=== PATIENT | female | born 1960 | race Caucasian/White ===

== ENCOUNTER → 2023-11-17 14:01 | Outpatient (BNVA) | payer MEDICAID, SELFPAY | PROVIDERS: Family Provider Nurse Practitioner; PCP Nurse Practitioner; Visit Provider Nurse Practitioner | DX: Z13.6 Encounter for screening for cardiovascular disorders (principal) | CPT/HCPCS: 80053; 80061; 84443; 85025 ==

== ENCOUNTER 2024-08-09 16:41 | Emergency (ER) | payer MEDICAID, SELFPAY ==
[2024-08-09 16:59] VITALS: BP 162/90; PULSE 82; RESP 18; TEMP 36.6; O2SAT 97; BMI 29.2
--- NOTE | 2024-08-09 17:19 | XRR_ITS ---
PROCEDURE INFORMATION: Exam: XR Right Tibia and Fibula Exam date and time: 08/09/2024 5:28 PM Age: 63 years old Clinical indication: Injury or trauma; Fall; Other: Bruising; Additional info: Fall/inj TECHNIQUE: Imaging protocol: Radiologic exam of the right tibia and fibula. Views: 2 views. COMPARISON: CR (LOW EXM, ) 08/09/2024 5:28 PM FINDINGS: Bones/joints: Normal. Soft tissues: Normal. XR/XR tibia fibula RT 2V [id number] IMPRESSION: No acute findings.
--- NOTE | 2024-08-09 17:19 | XRR_ITS ---
PROCEDURE INFORMATION: Exam: XR Right Knee Exam date and time: 08/09/2024 5:28 PM Age: 63 years old Clinical indication: Injury or trauma; Fall; Other: Bruising; Additional info: Fall/inj TECHNIQUE: Imaging protocol: Radiologic exam of the right knee. Views: 3 views. COMPARISON: CR XR tibia fibula RT 2V [id number] 08/09/2024 5:28 PM FINDINGS: Bones/joints: No definite acute fracture or dislocation. Soft tissues: Normal. XR/XR knee RT 3V* [id number] IMPRESSION: No definite acute osseous findings. If clinical concern persists, CT could be considered for further assessment.
--- NOTE | 2024-08-09 17:19 | W.ED.EXTPRO ---
HPI - Extremity Problem General: Chief complaint: Extremity Injury, Lower Stated complaint: Right leg injury Time Seen by Provider: 08/09/24 17:13 Source: family Mode of arrival: ambulatory Limitations: other (Patient is MR) History of Present Illness: Patient is a 63-year-old female who is brought in by family for right lower extremity injury that occurred on Thursday. Patient is MR, cannot provide any history and thus limiting review of systems. However family states that a gate fell on her right lower extremity, they are concerned due to the amount of bruising over the tibial tuberosity on the right side, as well as over the distal right justice. Patient has remained ambulatory, has not really been complaining much of pain. No neurovascular issues distally. No reported skin color changes or coolness to the extremity. No paralysis. MD Complaint: other (Right lower extremity injury) Onset (ago): day(s) (2) Location: right and lower extremity Context: other (Gait fell on leg) Related Data Home Medications Medication Instructions Recorded Confirmed No Known Home Medications 11/17/23 11/17/23 Allergies Allergy/AdvReac Type Severity Reaction Status Date / Time No Known Allergies Allergy Verified 08/09/24 17:11 Review of Systems General: Reports: ROS unobtainable due to mental status PFSH ED PFSH: Medical History Scoliosis Mental and behavioral problem in adult History of Upper [place] measles Surgical History No history of previous surgery Family History Other Diabetes Heart disease TIA (transient ischemic attack) Social History Smoking and tobacco/nicotine status: never used tobacco/nicotine Second hand smoke exposure: No Alcohol intake: never Substance/Drug Use: never Adopted: No Caregiver/support person: Yes Lives independently: No Household members: family Housing: House Marital status: Single Number of children: 0 Number of grandchildren: 0 service: No Current occupational status: disabled Current occupational exposures/hazards: No Pets and animals: Yes Do you think of yourself as: Straight/Heterosexual Current gender identity: Female Physical Exam Const: COMMON NORMALS: no acute distress, healthy appearing and alert EXAM LIMITATIONS: other limitations (MR) ORIENTATION/CONSCIOUSNESS: Yes awake HENMT: COMMON NORMALS: normocephalic and atraumatic HEAD & SCALP: normocephalic and atraumatic Neck/C-Spine: COMMON NORMALS: full ROM Extremity: NARRATIVE EXTREMITY EXAM: Bruising and swelling over the right tibial tuberosity, also some bruising noted to the distal right anterior justice. No coolness to the extremity. No distal sensory changes. 5/5 strength distally. DP/PT pulse 2+. Normal knee examination. Neuro: COMMON NORMALS: moves all extremities, no focal motor deficits and no sensory deficits noted SENSORIUM/ORIENTATION: Yes alert Skin: NARRATIVE SKIN EXAM: 2 small 1 cm abrasions to the mid aspect of the right anterior justice. Chronic venous stasis changes bilaterally to the lower extremities Course Vital Signs: Vital signs: Vital Signs Temperature 97.9 F 08/09/24 16:59 Pulse Rate 82 08/09/24 16:59 Respiratory Rate 18 08/09/24 16:59 Blood Pressure 162/90 08/09/24 16:59 Pulse Oximetry 97 08/09/24 16:59 Oxygen Delivery Me thod Room Air 08/09/24 16:59 MDM - Extremity (Nontraumatic) Medical Decision Making Injury on Thursday, large gate fell on patient's leg. Only concerns was the amount of bruising over the tibial tuberosity as well as to the distal right justice. No components of a compartment syndrome on exam, there was no paralysis or coolness to the extremity, she had good sensations and could move at the knee and ankle without complications. 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 X-rays of the right knee and right tib-fib did not demonstrate any acute findings. I have very little concern of a fracture or even compartment syndrome at this time, will continue to do conservative treatment at home and have her return if her symptoms are not getting better or worsening. Family agreed with this plan at this time, will be discharged home. Lab Data Radiology Impressions Knee X-Ray 08/09/24 17:19 IMPRESSION: No definite acute osseous findings. If clinical concern persists, CT could be considered for further assessment. Tibia/Fibula X-Ray 08/09/24 17:19 IMPRESSION: No acute findings. All radiology interpretation(s) finalized by discharge Discharge Plan Discharge Patient Disposition: Home Clinical Impression: Contusion of leg, right Qualifiers: Encounter type: initial encounter Qualified Code(s): S80.11XA - Contusion of right lower leg, initial encounter Condition: Stable Prescriptions: No Action No Known Home Medications Discharge Orders: Discharge ED (Routine); Ordered 08/09/24 Ordered By: Corey Cruz Referrals: Gee Martínez, [employer] [facility]NAGER[facility] [Primary Care Provider] - Patient Instructions: Contusion in Adults (ED) Activity Restrictions/Additional Instructions: Alternate Tylenol/ibuprofen for pain. Ice to the injured area. With any worsening of symptoms please return for reevaluation. Otherwise follow-up with primary care. Coding Level of Care Code ED Cutter Wet Machine for Rubin Grayson
[2024-08-09] MEDS: naproxen 500 mg Tablet PO (17:39)
== END 2024-08-09 18:24 | disposition home or self-care (01) ==
PROVIDERS: Emergency Provider Physician Assistant; PCP Nurse Practitioner
DX: S80.11XA Contusion of right lower leg, initial encounter (principal); X58.XXXA Exposure to other specified factors, initial encounter
CPT/HCPCS: 73562; 73590; 99283